=== PATIENT | male | born 1955 | race Asian ===

== ENCOUNTER 2017-10-09 06:40 | Day surgery (SDC) | payer OTHER ==
[~2017-10-09] VITALS: Ht 172.7 cm; Wt 60.5 kg
[~2017-10-09 06:40] MED LIST: AMLO-511 PO; ASPI81 PO; ATOR20TA86 PO; HYDR25TA PO; SODIUM CHLORIDE 0.9% 1,000 ML IV ONE
[2017-10-09] MEDS ORDERED: MIDAZOLAM HCL 2 MG/2 ML VIAL ONE (08:00)
[2017-10-09] MEDS ORDERED: FentaNYL CITRATE-PF 100 MCG/2 ML VIAL ONE (08:00)
[2017-10-09] MEDS ORDERED: MethylPREDNISolone SOD SUCC 125 MG/2 ML VIAL IVP ONE (09:30)
[2017-10-09] MEDS ORDERED: OXYGEN THERAPY IH SCH (20:00)
== END 2017-10-09 10:20 | disposition home or self-care (01) ==
LOC: SURGERY 06:40
PROVIDERS: ATTEND Internal Medicine Critical Care Medicine
DX: J38.4 Edema of larynx (principal); B37.0 Candidal stomatitis; J43.9 Emphysema, unspecified; I10 Essential (primary) hypertension; E11.9 Type 2 diabetes mellitus without complications; E78.00 Pure hypercholesterolemia, unspecified; Z87.891 Personal history of nicotine dependence; Z72.89 Other problems related to lifestyle; Z98.890 Other specified postprocedural states; Z79.899 Other long term (current) drug therapy
CPT/HCPCS: 31623; 31624; 71045; 87015; 87070; 87205; 87220; 88108; 88312; J2250; J2930; J3010; J7030